=== PATIENT | female | born 1985 ===

== ENCOUNTER 2022-05-25 11:54 | Emergency (ER) | payer BC | END 2022-05-25 16:28 | disposition home or self-care (01) | LOC: MW.ED 11:54 | DX: O20.0 Threatened abortion (principal); Z88.5 Allergy status to narcotic agent; Z88.8 Allergy status to other drugs, medicaments and biological substances; Z3A.01 Less than 8 weeks gestation of pregnancy | CPT/HCPCS: 36415; 76801; 76801-26; 81001; 84702; 99283; 99284 ==